=== PATIENT | female | born 1980 | race Caucasian/White ===

== ENCOUNTER 2023-03-10 11:26 | Observation (INO) ==
[2023-03-10 12:00] LABS: ABS Basophils 0.1 10^3/uL (0.0-0.1); ABS Eosinophils 0.1 10^3/uL (0.0-0.5); ABS Monocytes 0.3 10^3/uL (0.0-0.9); ABS Neutrophils 6.3 10^3/uL (1.5-7.6); ABS Nucleated RBC 0.01 10^3/ul; Eosinophil % 1.6 %; Hematocrit 41.2 % (35-45); Lymphocyte % 12.2 %; Mean Corpuscular Hemoglobin 29.4 pg (27-33); Mean Corpuscular Volume 86.5 fL (80-97); Mean Platelet Volume 11.1 fL (7.5-11.2); Nucleated Red Blood Cells % 0.2 /100 WBC (0.0-0.4); Platelet Count 156 10^3/uL (150-450); Red Blood Count 4.76 10^6/uL (3.63-4.92); White Blood Count 7.8 10^3/uL (3.8-11.8)
[2023-03-10 12:10] LABS: INR 1.04 (0.88-1.18)
[2023-03-10 12:18] LABS: ALT 18 U/L (7-52); Albumin 4.1 g/dL (3.2-5.2); Albumin/Globulin Ratio 1.1 (1-3); Alkaline Phosphatase 78 U/L (35-149); Blood Urea Nitrogen 14 mg/dL (6-24); CO2 Carbon Dioxide 23 mmol/L (22-32); Calcium 9.4 mg/dL (8.6-10.3); Chloride 95 mmol/L (101-111); Creatinine, Serum 1.29 mg/dL (0.51-0.95); Globulin 3.7 g/dL (2-4); Glucose 489 mg/dL (70-100); Sodium 129 mmol/L (135-145); Total Protein 7.8 g/dL (6.4-8.9); eGFR CKD-EPI 52.8 (>60)
[2023-03-10 12:20] LABS: High Sens Troponin Baseline 10 pg/mL (<15)
[2023-03-10 12:22] LABS: Anion Gap 11 mmol/L (2-16)
[2023-03-10] MEDS ORDERED: Morphine 4 MG/ML VIAL (1 ml) IV ONE (13:00)
[2023-03-10] MEDS ORDERED: Lactated Ringers 1000 ml BAG 1,000 ML IV ONE (13:09)
[2023-03-10 13:50] LABS: Potassium Redraw 4.2 mmol/L (3.5-5.0)
[2023-03-10] MEDS ORDERED: Dextrose 50% Syringe 50 ml 25 GM/50 ML SYRINGE IV PUSH PRN (14:44)
[2023-03-10 14:53] LABS: Cholesterol 256 mg/dL; HDL Cholesterol 29.3 mg/dL; Magnesium 1.8 mg/dL (1.9-2.7)
[2023-03-10] MEDS ORDERED: Iodixanol (CONTRAST) 320 MG/ML 100 ML SDV IV SCH (15:21)
[2023-03-10 17:13] LABS: High Sensitivity Troponin 3 Hr 11 pg/mL (<15)
[2023-03-10 17:15] LABS: Triglycerides 1304 mg/dL
[2023-03-10 17:46] LABS: LDL Cholesterol Direct 73 mg/dL
[2023-03-10 18:17] LABS: C Reactive Protein 43.95 mg/L (<8.01); Lipase 44 U/L (11.0-82.0)
[2023-03-10 23:02] LABS: High Sensitivity Troponin 1 Hr 10 pg/mL (<15)
[2023-03-11] MEDS ORDERED: Labetalol IV 5 MG/ML 20 ml VIAL IV PUSH ONE ×2 (00:11→02:19)
[2023-03-11 06:29] LABS: Calcium 8.7 mg/dL (8.6-10.3); Creatinine, Serum 1.13 mg/dL (0.51-0.95); Magnesium 1.7 mg/dL (1.9-2.7); Potassium 3.5 mmol/L (3.5-5.0); eGFR CKD-EPI 61.9 (>60)
[2023-03-11] MEDS ORDERED: Sulfur Hexaflouride MICROSPHR 25 MG VIAL ONE (08:42)
[2023-03-11] MEDS: Aspirin EC 81 mg TAB.EC (enteric coated) PO SCH (09:40)
[2023-03-11] MEDS ORDERED: Ondansetron 4 mg VIAL 2 MG/ML 2 ml VIAL IV PRN (11:12)
[2023-03-11] MEDS ORDERED: Enoxaparin 40 MG/0.4 ML SYR SUBCUT SCH (16:00)
[2023-03-11] MEDS ORDERED: Magnesium Sulfate IV 3 GM in NS 0.9% 100 ml BAG 100 ML IVPB ONE (17:14)
[2023-03-11] MEDS ORDERED: Insulin GLARGINE 100 un/ml 10 ml VIAL SUBCUT SCH (21:00)
[2023-03-12 06:11] LABS: ABS Eosinophils 0.2 10^3/uL (0.0-0.5); ABS Lymphocytes 1.2 10^3/uL (1.0-4.8); ABS Monocytes 0.4 10^3/uL (0.0-0.9); ABS Neutrophils 5.6 10^3/uL (1.5-7.6); Eosinophil % 2.4 %; Hematocrit 38.1 % (35-45); Hemoglobin 13.1 g/dL (11.5-14.3); Lymphocyte % 16.8 %; Mean Corpuscular Hemoglobin 28.9 pg (27-33); Mean Corpuscular Hgb Conc 34.3 g/dL (31-36); Mean Corpuscular Volume 84.2 fL (80-97); Mean Platelet Volume 10.9 fL (7.5-11.2); Platelet Count 141 10^3/uL (150-450); Red Blood Count 4.53 10^6/uL (3.63-4.92); Red Cell Distribution Width 15.1 % (12-17); White Blood Count 7.4 10^3/uL (3.8-11.8)
[2023-03-12 06:29] LABS: Calcium 8.8 mg/dL (8.6-10.3); Creatinine, Serum 1.15 mg/dL (0.51-0.95); Magnesium 1.8 mg/dL (1.9-2.7); Potassium 3.6 mmol/L (3.5-5.0); eGFR CKD-EPI 60.6 (>60)
[2023-03-12] MEDS: Aspirin EC 81 mg TAB.EC (enteric coated) PO SCH (09:46)
[2023-03-12] MEDS ORDERED: Dextrose 50% Syringe 50 ml 25 GM/50 ML SYRINGE IV PUSH PRN (10:31)
[2023-03-12 12:27] LABS: Glucose Confirmatory 427 mg/dL (70-100)
[2023-03-12 16:28] VITALS: BP 154/101
[2023-03-12] MEDS ORDERED: Insulin GLARGINE 100 un/ml 10 ml VIAL SUBCUT SCH (21:00)
== END 2023-03-12 17:00 | disposition home or self-care (01) ==
LOC: EDHOLD 11:26 → ED 11:26 → SUATTDRO 14:54 → EDHOLD 15:49 → MEDTELE 16:16
PROVIDERS: ADMIT Internal Medicine; ATTEND Internal Medicine